=== PATIENT | female | born 1945 | race Caucasian/White ===

== ENCOUNTER 2016-06-04 20:25 | Emergency (ER) | payer MEDICARE, OTHER ==
[~2016-06-04] VITALS: Ht 167.6 cm; Wt 86.0 kg
[~2016-06-04 20:25] MED LIST: CHOL10008 PO; LORA10CA PO; MULT-1007 PO; OMEP20CA11 PO; POTA99TA15 PO; RANI150T13 PO; [UNRECOGNIZED DRUG - CODE] PO; flaxseed oil PO
[2016-06-04 20:26] VITALS: BP 115/83; PULSE 109; RESP 18; O2SAT 96
--- NOTE | 2016-06-04 21:15 | DRSVH ---
PROCEDURE: X-RAY CHEST ONE VIEW, PORTABLE ([id number]) INDICATIONS: chest pain TECHNIQUE: One view of the chest was acquired. COMPARISON: None. FINDINGS: Surgical changes and devices: None. Lungs and pleura: No pleural effusions or pneumothorax. Lungs are clear. Mediastinum: Mediastinal contours appear normal. Heart size is normal. Bones and chest wall: No suspicious bony lesions. Overlying soft tissues appear unremarkable. IMPRESSION: Negative chest Dictated by: Freddie Garcia M.D. on 06/04/2016 at 21:13 Approved by: Freddie Garcia M.D. on 06/04/2016 at 21:13
[2016-06-04 21:31] VITALS: BP 150/82; PULSE 80; RESP 18; O2SAT 95
[2016-06-04 21:53] LABS: BASOPHILS % (AUTO) 0.3 % (0-3); EOSINOPHILS % (AUTO) 1.8 % (0-5); MONOCYTES % (AUTO) 10.8 % (4-12); Mean Corpuscular Hemoglobin 31.8 pg (27.0-35.0); Mean Corpuscular Volume 91.2 fL (81-100); NEUTROPHILS % (AUTO) 50.6 % (40-74); Platelet Count 270 bil/L (150-400)
--- NOTE | 2016-06-04 21:57 | ED.REPORT ---
HPI-Chest Pain 40 and Over Date of Service Jun 04, 2016 ED Provider: Zaheer Dimas MD A 70 year old female with a history of hypertension, GERD, costochondritis, 1st degree heart block and hyperlipidemia presents to the ED complaining of chest pain that began 4 hours ago. The pain has been constant since onset and feels more "intense" than her previous similar episodes of pain. She describes her pain "sharp" and it is exacerbated by deep breath. The pain is associated with SOB, dizziness and flatulence. Patient recorded her BP at 192/109 when her symptoms first began. She reports that a similar, less severe chest pain has been occurring intermittently for the past few months and symptoms are often associated with mild exertion. She states that she becomes SOB after walking for approx. 0.25 miles (changed from 2015). Patient was seen in 2011 for similar symptoms and echocardiogram at the time was normal. She denies diaphoresis or nausea. Patient does not currently take any BP medication. Patient denies history of smoking or family history of heart disease. Nursing Notes Stated Complaint: HEART ISSUES Chief Complaint: Chest Pain Nursing Notes Reviewed: Yes Allergies: Coded Allergies: aspirin (Verified Allergy, Severe, Facial Swelling, 03/16/13) lisinopril (Verified Allergy, Severe, Anaphylaxis, 03/16/13) Sulfa (Sulfonamide Antibiotics) (Verified Allergy, Unknown, Unknown, ) amoxicillin (Verified Allergy, Unknown, rash, 09/04/14) ciprofloxacin (Verified Allergy, Unknown, HIVES, 09/04/14) ciprofloxacin HCl (Verified Allergy, Unknown, HIVES, 09/04/14) hydrocodone (Verified Allergy, Unknown, 02/05/13) oxycodone (Verified Allergy, Unknown, 03/16/13) erythromycin base (Verified Adverse Reaction, Mild, Upset Stomach, 06/04/12) Uncoded Allergies: "SPORIN" FOR EARS (Allergy, Intermediate, Hives, 04/08/03) ERYTHROMYCIN (Allergy, Unknown, GI upset, 09/04/14) Scheduled ([flaxseed oil]) 1,000 MG PO DAILY Cholecalciferol-Expunged Drug, Do Not Renew! (Vitamin D3-Expunged Drug, Do Not Renew!) 1,000 Unit Tab.chew 1,000 UNIT PO DAILY Loratadine-Expunged Drug, Do Not Renew! (Loratadine-Expunged Drug, Do Not Renew! ) 10 Mg Capsule 10 MG PO DAILY Multivitamin (Multi-Vitamin Daily) 1 Each Tablet 1 EACH PO DAILY Omeprazole-Expunged Drug, Do Not Renew! (Omeprazole-Expunged Drug, Do Not Renew! ) 20 Mg Capsule.dr 2 CAP PO DAILYAC POTASSIUM GLUC-Expunged Drug, Do Not Renew! (POTASSIUM-Expunged Drug, Do Not Renew!) 99 Mg Tablet 99 MG PO NO SIG GIVEN Ranitidine Hcl (Zantac) 150 Mg Tablet 300 MG PO HS Triamterene/HCTZ-Expunged Drug, Do Not Renew! (SXHYZVX-21-Suxcnoep Drug, Do Not Renew!) 1 Ea Cap 1 CAP PO DAILY General Time Seen by MD: 21:27 Chief Complaint Chest pain Hx Obtained From: Patient Arrived By: Walk-in Sudden in Onset?: No Onset Occurred: 1 - 4 hours ago Symptom Duration: Since onset Location: : Chest left: Chest right Quality: Sharp Radiation: : Does not radiate Migration/Movement: Reports: None Severity: Current: Mild Severity: Maximum: Moderate Associated with: Reports: Dizziness, Shortness of Breath, Denies: Diaphoresis, Nausea Pertinent Negative: Pt denies other symptoms Exacerbated by: Deep breath, Exertion, mild Recent Healthcare: No recent doctor visit, No recent hospitalization Risk Factors )( CAD Risk Stratification Hyperlipidemia HypertensionNo Smoking Risk factors reviewed )( TAD Risk Stratification Hypertension Risk factors reviewed )( PE Risk Stratification Risk factors reviewed Past Medical History Past Medical History Notes: Drawer In [place]: Dr. Quintanilla PCP: Dr. Sherron Harrell Past Medical History 1. Hypertension. 2. Hyperlipidemia. 3. History of previous sinusitis. 4. History of pleurisy 30 years ago, status post treatment, resolved. 5. History of shingles outbreak. 6. Gastroesophageal reflux disease 7. The patient previously had bladder infection. 8. History of allergies. 9. History of dry eyes. 10. History of cholecystitis status post cholecystectomy. 11. costochondritis Past Surgical History 1. Tonsillectomy. 2. Gallbladder. 3. Laparoscopic surgery to rule out endometriosis which came back negative. Family History Denies history of cardiac disease Smoking History Never Smoker Social History Other Social History: Good social support, Local resident Ambulatory Status Independent Review of Systems Constitutional: Denies: Chills, Fever Respiratory: Reports: Shortness of breath Cardiovascular: Reports: Chest pain GI: Denies: Nausea, Vomiting Skin: Denies Diaphoresis Neurologic: Reports: Dizziness Complete sys rev & neg: except as marked. Physical Exam Initial Vital Signs Vital Signs (First) Date Time Temp Pulse Resp B/P Pulse Ox O2 Delivery O2 Flow Rate FiO2 06/04/16 20:26 36.8 109 18 115/83 96 Room Air Initial VS: Reviewed Head / Eyes: Atraumatic, Normocephalic, PERRL Neck: Supple, Non-tender, Full range of motion Extremities: Vascular intact, Neuro intact, No swelling, No tenderness Skin: Warm, Dry, No cyanosis Neurologic: Alert, Oriented, Nonfocal Psychiatric: Mood/affect normal, Behavior normal, Normal thought content General/Constitutional: Awake, Alert, No acute distress Respiratory / Chest: Atraumatic, Breath sounds NL, Breath sounds = bilat, No respiratory distress Cardiovascular: Heart rate NL, Regular rhythm Heart Sounds / Murmur: Positive: Systolic murmur present.. (III/; Premature beats) Abdomen: Atraumatic, Soft, Non-tender, BS normoactive Interpretation & Diagnostics Lab Results Interpretation Result Diagram: 06/04/16212906/04/162129 Test 06/04/16 21:30 06/04/16 23:30 White Blood Count 10.8th/mm3 (3.8-10.1) Red Blood Count 4.66mil/mm3 (3.90-5.20) Hemoglobin 14.8g/dL (12.0-15.6) Hematocrit 42.5% (35.0-46.0) Mean Corpuscular Volume 91.2fL (81-100) Mean Corpuscular Hemoglobin 31.8pg (27.0-35.0) Mean Corpuscular Hemoglobin Concent 34.8% (32.0-37.0) Red Cell Distribution Width 13.7% (12.3-15.4) Platelet Count 270bil/L (150-400) Neutrophils (%) (Auto) 50.6% (40-74) Lymphocytes (%) (Auto) 36.3% (14-46) Monocytes (%) (Auto) 10.8% (4-12) Eosinophils (%) (Auto) 1.8% (0-5) Basophils (%) (Auto) 0.3% (0-3) Sodium Level 136mEq/L (134-144) Potassium Level 3.4mEq/L (3.5-5.2) Chloride Level 97mEq/L (97-108) Carbon Dioxide Level 24mmol/L (18-29) Blood Urea Nitrogen 20mg/dL (8-27) Creatinine 0.78mg/dL (0.57-1.00) Estimat Glomerular Filtration Rate 104mL/min (>59) Glucose Level 129mg/dL (60-99) Calcium Level 9.2mg/dL (8.5-10.1) Magnesium Level 1.6mg/dL (1.6-2.6) Total Bilirubin 0.2mg/dL (0.0-1.2) Aspartate Amino Transf (AST/SGOT) 25U/L (0-50) Alanine Aminotransferase (ALT/SGPT) 25U/L (0-32) Alkaline Phosphatase 112U/L (25-165) Total Protein 6.9g/dL (6.4-8.4) Albumin 4.3g/dL (3.4-5.0) Hold Salazar Top Tube Received (Received) Lab Results Interpretation: At the time of my departure, Dr. Monae is consulted about the patient. Repeat troponin is reviewed by Dr. Monae and the appropriate course of action is taken. ECG Interpretation ECG Interpretation: Sinus tachycardia Rate 97 No acute Ventricular trigeminy LVH w/ secondary repol abnormality Anterior infarct, old Time: 21:00 Interpreted by: ED physician X-Ray Chest Interpretation Chest Xray Interpretation: IMPRESSION: Negative chest Dictated by: Freddie Garcia M.D. on 06/04/2016 at 21:13 Interpretation / Wet Read by: Interpret - Radiologist Re-Eval/Medical Decision Time of Eval: 23:19 Patient Status: Condition improved Re-Evaluation/Progress Note: She is informed of her repeat troponin results and the plan to discharge. Patient reports that she is feeling much better. Counseled Regarding: Diagnosis, Lab results, Need for follow-up, When/why to return to ED Discharge & Departure Primary Impression: Chest pain Chest pain type: unspecified Qualified Code: R07.9 - Chest pain, unspecified Disposition: Home Discharge Condition All VS Reviewed: Yes Condition: Improved Patient Instructions: Chest Pain (ED) Additional Instructions: Thank you for trusting us with your care this evening. Your emergency department evaluation today included interview, examination, lab work, EKG, and Chest X-ray. Your results are reassuring that there is no dangerous cause for concern at this time. Your troponin came back negative. A clear cause of your symptoms was not identified and I recommend you keep the appointment with your shoe handler. Please continue to take home medication as directed. Schedule a follow-up appointment with your primary doctor in the next week for a recheck. You should return to the ED immediately if you develop shortness of breath, dizziness, worsening chest pain or any other concerning signs or symptoms. Referrals: Lee Harrell MD (PCP) Larwence Quintanilla MD Attestation Portions of this note were transcribed by Davie Augustine. I, Dr. Dimas personally performed the history, physical exam and medical decision-making; I reviewed and confirmed the accuracy of the information in the transcribed note. Signed by: Kate Connor, 06/04/16 2636. copies to: Lawrence Quintanilla MD; Lee Harrell MD, Donald L MD Jun 04, 2016 21:57 DAVIE AUGUSTINE Jun 04, 2016 22:23
[2016-06-04 22:12] LABS: TROPONIN T < 0.010 ug/L (0.0-0.011)
[2016-06-04 22:26] LABS: Magnesium 1.6 mg/dL (1.6-2.6)
[2016-06-04 22:54] VITALS: BP 146/76; PULSE 76; RESP 16; O2SAT 96
[2016-06-05 00:02] VITALS: BP 132/70; PULSE 74; RESP 18; O2SAT 96
[2016-06-05 00:28] VITALS: BP 136/82; PULSE 75; RESP 16; O2SAT 96
[2016-07-14] MEDS ORDERED: MULT-1073 PO (12:03)
[2016-07-14] MEDS ORDERED: FLAX100038 PO (12:03)
[2016-07-14] MEDS ORDERED: SPIR25TA3 PO (12:03)
[2016-07-14] MEDS ORDERED: HYDR25TA4 PO (12:03)
[2016-07-14] MEDS ORDERED: ROSU5TAB9 PO (12:03)
[2016-07-14] MEDS ORDERED: CYAN500T53 SL (12:03)
[2016-07-14] MEDS ORDERED: TRIA10.8 NS (12:03)
[2016-07-14] MEDS ORDERED: MAGN400T4 PO (12:03)
[2016-07-14] MEDS ORDERED: EPIN0.3P2 IJ (12:03)
[2016-07-14] MEDS ORDERED: LACT1CAP65 PO (12:03)
[2016-07-14] MEDS ORDERED: FEXO-15 PO (12:03)
== END 2016-06-05 00:29 | disposition home or self-care (01) ==
LOC: SED 20:25
DX: R07.9 Chest pain, unspecified (principal); I10 Essential (primary) hypertension; K21.9 Gastro-esophageal reflux disease without esophagitis; E78.5 Hyperlipidemia, unspecified; Z88.6 Allergy status to analgesic agent; Z88.8 Allergy status to other drugs, medicaments and biological substances; Z88.2 Allergy status to sulfonamides; Z88.5 Allergy status to narcotic agent

== ENCOUNTER 2016-07-15 00:09 | Day surgery (SDC) | payer MEDICARE ==
[2016-07-15] VITALS (16 sets, daily range): BP systolic 121–159; BP diastolic 58–89; PULSE 65–82; RESP 12–22; O2SAT 92–97
[~2016-07-15] VITALS: Ht 167.6 cm; Wt 82.3 kg
[~2016-07-15 00:09] MED LIST changes: +CYAN500T53 SL; +EPIN0.3P2 IJ; +FEXO-15 PO; +FLAX100038 PO; +HYDR25TA4 PO; +LACT1CAP65 PO; -LORA10CA PO; +MAGN400T4 PO; -MULT-1007 PO; +MULT-1073 PO; -POTA99TA15 PO; -RANI150T13 PO; +ROSU5TAB9 PO; +SPIR25TA3 PO; +TRIA10.8 NS; -[UNRECOGNIZED DRUG - CODE] PO; -flaxseed oil PO
[2016-07-15 10:36] LABS: BASOPHILS % (AUTO) 0.1 % (0-3); EOSINOPHILS % (AUTO) 2.3 % (0-5); MONOCYTES % (AUTO) 10.4 % (4-12); Mean Corpuscular Hemoglobin 31.9 pg (27.0-35.0); Mean Corpuscular Volume 91.3 fL (81-100); NEUTROPHILS % (AUTO) 58.3 % (40-74); Platelet Count 268 bil/L (150-400)
[2016-07-15] MEDS ORDERED: Ondansetron 2 mg/mL 2 mL Inj IVPUSH PRN (10:50)
[2016-07-15 10:51] LABS: INR 1.02 ratio
[2016-07-15] MEDS ORDERED: OMEP20TA86 PO (11:10)
--- NOTE | 2016-07-15 11:24 | NUR ---
[facility] ADMIT 70 YR OLD FEMALE ADMITTED TO [facility] FOR HEART CATH TODAY. IVS STARTED PER IVT, LABS SENT, AND QUESTIONS ANSWERED. CONSENT IS SIGNED. PT IS NPO SINCE 07/14/16 1830. ALLERGIES CONFIRMED AND UPDATED.
[2016-07-15] MEDS ORDERED: Nitroglycerin 50,000 mcg/250 mL D5W Premix IV ONE (12:14)
[2016-07-15] MEDS ORDERED: Heparin 1,000 Units/500 mL NS Premix IV ONE (12:14)
[2016-07-15] MEDS ORDERED: Heparin 1,000 Unit/mL 10 mL Inj ONE (12:14)
[2016-07-15] MEDS ORDERED: Heparin 10,000 Unit/1,000 mL NS Premix IV ONE (12:14)
[2016-07-15] MEDS ORDERED: fentaNYL-PF 50 mCg/mL 2 mL Inj ONE ×2 (12:41→13:08)
[2016-07-15] MEDS ORDERED: Labetalol 5 mg/mL 20 mL Inj ONE ×2 (12:54→15:19)
[2016-07-15] MEDS ORDERED: Verapamil 2.5 mg/mL 2 mL Inj ONE (12:59)
--- NOTE | 2016-07-15 15:17 | PCM.CVCATH ---
Cardiac Cath Report Date of Service July 15, 2016 Primary Indication Chest pain, abnormal stress test Procedure coronary angiography, left heart cath Vascular Access Right radial artery using 6 Fr slender sheath, closure with TR band. Diagnostic Catheters Left main: [place] 4.5, 5 Fr RCA: [place] 4.5, 5 Fr Procedure Details Coronary angiography details: The patient was brought to the cardiac catheterization lab in the fasting state. Patient was laid supine on the cardiac catheterization table and the right forearm was prepped and draped in the usual sterile fashion. One percent Xylocaine was infiltrated over the right radial artery. Vascular access was then achieved under ultrasound guidance. Due to radial artery tortuosity, contrast was injected and the radial artery was small. Therefore, C9 Media wire was used to advanced the catheter through the sheath and up into aortic sinuses. After coronary angiography was completed, guide wire was advanced through the catheter ahead of the tip of the catheter and the guide wire along with the catheter were pulled together out of the sheath. Medications/Fluoro Time Medications administered: 1.Fentanyl: 125 mcg IV 2. Midazolam: 2.5 mg IV 3. Heparin: 5000 units IV 4. Nitroglycerin: 300 mcg IA 5. Verapamil: 250 mcg IA Fluoroscopy Time: 5.6 minutes, 628 mGy Contrast (Isovue): 50 mls Blood loss: 5 mls Findings 1) Coronary angiography: Right dominance a. Left main is normal caliber with 60-70% distal stenosis that extends to the ostium of LAD and LCx. b. LAD is normal caliber with 70-80% ostial stenosis and 70-80% tubular stenosis in the mid vessel. There is a medium to large caliber diagonal artery with 90% stenosis proximally before the diagonal artery bifurcates into superior and inferior branches. c. LCx is normal caliber giving rise to large caliber obtuse marginal (OM) artery. The OM branch has 70-80% tubular stenosis in the proximal segment. d. RCA is a normal caliber vessel with 30% tubular stenosis proximally and 80 % stenosis at the very distal RCA, just before PDA take off. 2) Left Heart catheterization: a. LVEDP is 14 at mmHg. b. No significant transaortic gradient on catheter pull-back. Complications There were no periprocedural complications identified. 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 2) Normal left sided filling pressures Recommendations Refer to CT surgery for CABG. copies to: Lee Harrell MD, Bhrigu R MD July 15, 2016 15:17
--- NOTE | 2016-07-15 15:27 | NUR ---
LABATELOL 10 MG IV PUSH GIVEN FOR sbp 144/73.
--- NOTE | 2016-07-15 17:07 | NUR ---
DISCHARGE INSTRUCTIONS REVIEWED WITH PATIENT AND FRIEND.PT DISCHARGED AMBULATORY.
== END 2016-07-15 23:59 | disposition home or self-care (01) ==
LOC: SOUO 00:09
PROVIDERS: ATTEND Internal Medicine Cardiovascular Disease
DX: I25.10 Atherosclerotic heart disease of native coronary artery without angina pectoris (principal); E66.9 Obesity, unspecified; Z68.30 Body mass index [BMI] 30.0-30.9, adult; I49.3 Ventricular premature depolarization; I10 Essential (primary) hypertension; I47.2 Ventricular tachycardia; K21.9 Gastro-esophageal reflux disease without esophagitis
CPT/HCPCS: 36415; 80048; 85025; 85610; 93005; 93458; 99152; 99153; C1769; C1887; C1894; J1644; J2250; J3010; Q9967